=== PATIENT | male | born 1950 | race Caucasian/White ===

== ENCOUNTER 2019-07-03 07:40 | Outpatient (CLI) | payer OTHER ==
[2019-07-03] MEDS ORDERED: PROTONIX40 M1 PO (11:26)
== END 2019-07-03 07:50 | disposition home or self-care (01) ==
LOC: LAB 07:40
DX: D64.89 Other specified anemias (principal); E88.89 Other specified metabolic disorders; D68.8 Other specified coagulation defects; N39.0 Urinary tract infection, site not specified; B95.62 Methicillin resistant Staphylococcus aureus infection as the cause of diseases classified elsewhere